=== PATIENT | male | born 1965 | race Caucasian/White ===

== ENCOUNTER 2019-09-14 14:04 | Emergency (ER) | payer OTHER, BC, SELFPAY ==
[2019-09-14] VITALS (13 sets, daily range): BP systolic 164–181; BP diastolic 97–122; PULSE 70–101; RESP 14–20; TEMP 36.8; O2SAT 95–98; BMI 29.0
--- NOTE | 2019-09-14 | DI.RAD.S_ITS ---
PROCEDURE: XR ANKLE LT 2V INDICATIONS: POST REDUCTION TECHNIQUE: 2 views of the ankle were acquired. COMPARISON: [facility], CR, XR ANKLE LT 2V, 09/14/2019, 15:41. FINDINGS: Bones: There has been interval reduction of the fracture dislocation at the mortise joint. Fracture fragments are in closer anatomic alignment. There is persistent widening of the tibiotalar joint and the obliquely oriented distal fibular fracture remains slightly displaced. Soft tissues: No tibiotalar joint effusion. Achilles tendon appears normal. IMPRESSION: Status post reduction of the fracture fragments at the fracture dislocation of the mortise joint with improved anatomic alignment. Approved by: Candace Hunter M.D. on 09/14/2019 at 18:59
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
--- NOTE | 2019-09-14 14:50 | DI.RAD.S_ITS ---
PROCEDURE: XR ANKLE LT 2V INDICATIONS: L ankle deformity TECHNIQUE: 2 views of the ankle were acquired. COMPARISON: [facility], CT, CT HEAD/BRAIN WO CON, 09/14/2019, 15:31. [facility], CT, CT THORACIC SPINE WO CON, 09/14/2019, 15:31. [facility], CT, CT CERVICAL SPINE WO CON, 09/14/2019, 15:31. FINDINGS: Bones: A prominent fracture dislocation can be seen, with a comminuted: Prominent displaced moderately angulated distal fibular fracture. The talus is prominently dislocated laterally. The talar dome demonstrates no florencio abnormality. Soft tissues: Soft tissue swelling is seen. IMPRESSION: Prominent fracture/dislocation, with the talus prominently dislocated laterally. If it would be helpful for clinical management decision making, please consider a dedicated ankle CT for further evaluation. Dictated by: Rodolfo Gold M.D. on 09/14/2019 at 15:31 Approved by: Rodolfo Gold M.D. on 09/14/2019 at 15:33
[2019-09-14] MEDS: HYDROMORPHONE 0.5 MG INJ IV ×2 (14:56→15:25)
--- NOTE | 2019-09-14 14:58 | ED.LOWEXIN ---
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 encounter for closed fracture Discharge Date/Time: 09/14/19 20:17 Instructions: DI for Ankle Fracture Activity Restrictions/Additional Instructions: Thank you for entrusting me with your care today. As discussed, you have fractured your ankle. Do not place any weight on your ankle, leave the splint in place. I prescribed you pain and nausea medication. You have been prescribed a narcotic medication, this medication can make you drowsy. Do not drive while using this medication or perform activities that require mental alertness. These medications can also make you constipated, please use [id number] docusate sodium as needed for constipation. Please follow-up with the orthopedic, Dr. Cortes, at [facility]. Please call their clinic tomorrow on Monday to schedule a follow-up appointment (phone: [phone]) in the next week. Return to the emergency department for any new or worsening symptoms such as severe pain, numbness or tingling, fevers, nausea, vomiting, or any other concerns. Prescriptions: New oxycodone-acetaminophen [Percocet] 5-325 mg tablet 1 tab PO Q4-6H PRN (Reason: pain) Qty: 14 RF: 0 ondansetron 4 mg tablet,disintegrating 4 mg PO Q6H PRN (Reason: nausea and vomiting) Qty: 14 RF: 0 No Action atenolol 25 MG tablet 25 mg PO QDAY Qty: 0 RF: 0 Stand Alone Forms: Work Release Note
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
[2019-09-14] MEDS: ONDANSETRON 4 MG/2 ML INJ IV (15:25)
[2019-09-14] MEDS: SODIUM CHLORIDE 0.9% 1,000 ML 1000 ML IV (15:25)
[2019-09-14 16:44] LABS: Add Manual Diff / Slide Review NO; Basophils Absolute Auto 100 /uL (0-100); Basophils Percent Auto 0.6 % (0-2); Eosinophils Absolute Auto 0 /uL (0-450); Hematocrit 48.7 % (41-53); Hemoglobin 16.6 g/dL (13.5-17.5); Lymphocytes Absolute Auto 2600 /uL (1100-4500); Lymphocytes Percent Auto 29.2 % (25-40); Mean Corpuscular Hemoglobin 30.5 PG (26-34); Mean Corpuscular Volume 89.7 fL (80-100); Monocytes Absolute Auto 800 /uL (0-900); Monocytes Percent Auto 9.1 % (3-14); Neutrophils Absolute Auto 5400 /uL (1500-7000); Neutrophils Percent Auto 61.1 % (50-75); Platelet Count 217 X10^3/uL (150-400); Red Blood Cell Count 5.42 X10^6/uL (4.5-5.9); Red Cell Distribution Width 13.5 % (11.6-14.8); White Blood Cell Count 8.8 X10^3/uL (4.5-11.0)
[2019-09-14 16:51] LABS: Alanine Aminotransferase 58 IU/L (<50); Albumin 4.6 g/dL (3.5-5.0); Albumin Globulin Ratio 1.6 (1.0-2.8); Alkaline Phosphatase 50 U/L (38-126); Aspartate Aminotransferase 46 IU/L (17-59); BUN Creatinine Ratio 13.3 (6-22); Bilirubin Total 0.8 mg/dL (0.2-1.3); Blood Urea Nitrogen 15 mg/dL (9-20); Calcium 9.5 mg/dL (8.4-10.2); Carbon Dioxide 23 mmol/L (22-32); Chloride 105 mmol/L (98-107); Estimated Glomerular Filt Rate > 60.0 mL/min (>60); Globulin 2.8 g/dL (1.7-4.1); Glucose 150 mg/dL (70-100); HEMOLYSIS 33 (0-50); Sodium 140 mmol/L (137-145); Total Protein 7.4 g/dL (6.3-8.2)
[2019-09-14] MEDS: HYDROMORPHONE 2 MG INJ 0.5 MG IV ×2 (17:04→17:59)
[2019-09-14] MEDS: TET,DIPH,PERTUSS(ACELL),VAC/PF 0.5 ML SYRINGE IM (17:59)
[2019-09-14] MEDS: propofoL 200 MG/20 ML VIAL 175 MG IV (18:20)
[2019-09-14] MEDS: HYDROMORPHONE 0.5 MG INJ 1 MG IV (18:35)
[2019-09-14] MEDS: OXYCODONE/APAP 5/325 PREPACK 1 BOTTLE MISC (19:51)
[2019-09-14] MEDS: ONDANSETRON 4 MG ODT PREPACK 1 BOTTLE MISC (19:51)
== END 2019-09-14 20:17 | disposition home or self-care (01) ==
PROVIDERS: Emergency Provider Nurse Practitioner
DX: S82.892A Other fracture of left lower leg, initial encounter for closed fracture (principal); S82.832A Other fracture of upper and lower end of left fibula, initial encounter for closed fracture; V23.4XXA Motorcycle driver injured in collision with car, pick-up truck or van in traffic accident, initial encounter; Z23 Encounter for immunization
CPT/HCPCS: 27752; 70450; 72125; 72128; 73600; 80053; 85025; 90471; 94770; 96361; 96374; 96375; 96376; 99152; 99153; 99285; 90715; J1170; J2405; J2704

== ENCOUNTER → 2019-09-17 07:29 | Outpatient (CLI) | payer BC, OTHER, SELFPAY ==
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
[2019-09-17 15:57] LABS: COVID19 -Nasal RAPID Negative (Negative)
== END ==
PROVIDERS: Physician Assistant; Referring Provider Orthopaedic Surgery Adult Reconstructive Orthopaedic Surgery; Visit Provider Orthopaedic Surgery Adult Reconstructive Orthopaedic Surgery
DX: Z11.59 Encounter for screening for other viral diseases (principal); S82.852A Displaced trimalleolar fracture of left lower leg, initial encounter for closed fracture; X58.XXXA Exposure to other specified factors, initial encounter
CPT/HCPCS: 73700; 87635

== ENCOUNTER 2019-09-18 14:30 | Day surgery (SDC) | payer OTHER, SELFPAY ==
[2019-09-17 11:58] VITALS: BMI 29.0
[2019-09-18] VITALS (11 sets, daily range): BP systolic 108–167; BP diastolic 37–108; PULSE 61–81; RESP 10–19; TEMP 37–37.4; O2SAT 93–99; BMI 29.2
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
[2019-09-18] MEDS: LACTATED RINGERS 1,000 ML 42 ML IV ×2 (15:00→18:43)
--- NOTE | 2019-09-18 15:11 | SUR.PREOP ---
drinks 2-3 alcoholic beverages/day
--- NOTE | 2019-09-18 15:58 | SUR.PREOP ---
continuous VS/heel brusher, O2 at 2LNP in prep for nerve block by Dr. Huitron.
--- NOTE | 2019-09-18 16:02 | PM.PREOP ---
Pre-operative Note COVID-19 COVID-19 status: Negative Result date/Date tested (Pos, Neg/Pending): 09/17/19 Interval Note History & Physical reviewed/Exam performed by Physician: Yes Changes to H&P: No H&P completed within 30 days and has changed as indicated here:: Plan for L ankle ORIF
--- NOTE | 2019-09-18 16:31 | SUR.PREOP ---
1426 Nerve block completed, pt awake, oriented, responded appropriately throughout procedure. Tolerated it well.
[2019-09-18] MEDS: CEFAZOLIN 2 GM/100 ML FROZ.PIGGY IV (16:39)
--- NOTE | 2019-09-18 16:57 | SUR.OPER ---
Supine on padded OR bed, head on pillow, arms secured on padded arm boards at <90 degrees abduction, right legs secured to bed with tape over blankets. Left lower leg on stack of blankets under control of surgeon. Safety belt at waist.
--- NOTE | 2019-09-18 17:04 | P.PCN_ITS ---
Procedures Date/Time Date of procedure: 09/18/19 Time of procedure: 16:00 General Procedure description: Ultrasound guided popliteal sciatic nerve block for post op pain control after left ankle ORIF by Dr. Cortes. Risk and benefits of proced ure discussed with patient. ASA monitoring applied to patient. Oxygen given via nasal cannula. 2 mg Versed and 100 mcg fentanyl given for procedural sedation. Skin site was prepped with chlorhexidine and allowed to fully dry. Sterile gloves, mask, hat and probe cover were used to maintain sterility. 2% lidocaine and 30ga needle was used to make a small skin wheal at needle insertion site. Under ultrasound guidance, a 21ga 100mm Pajunk needle was directed near the division of the sciatic nerve into tibial and peroneal nerve in the popliteal fossa (lateral approach). Patient reported no parasthesias. After negative aspiration, 20 mL 0.5% ropivacaine and 5mg dexamethasone were injected around s ciatic nerve. Patient tolerated procedure well. For adductor canal block, similar sterile prep was performed. Under US guidance, 100mm Pajunk needle was directed into the adductor canal at the level of mid thigh. After negative aspiration, 20 mL 0.5% ropivacaine and 5mg dexamethasone were injected. No parasthesias reported. Tolerate procedure well. Top Photo: Sciatic nerve, Bottom Photo: Adductor canal/saphenous nerve
--- NOTE | 2019-09-18 19:01 | PM.OP.1 ---
Operative Date/Time/Diagnoses Date of procedure: 09/18/19 Time of procedure: 19:01 Pre-op diagnosis: Left ankle trimalleolar equivalent fracture Post-op diagnosis: same Procedure & Clinicians Procedure: ORIF left ankle fracture Same procedure as scheduled: Yes Indications: trimalleolar ankle fracture equivalent Surgeon: Lionel Cortes Click Yes if Unassisted: Yes Anesthesia Type: General Operative Notes Findings: displaced fibular fracture, medial clear space widening, posterior malleolus fracture Closure Type: primary Prosthetic devices, grafts, tissues, transplants, or devices: Arthrex 12 hole 1/3 tubular plate 3x 2.7mm cortical lag screws by technique 3.5mm cortical 55mm syndesmosis screw Estimated Blood Loss (mL): 50 Blood products transfused: none Tourniquet time (min): 90 Procedure in detail: Patient was met in the preoperative holding area where the site and side of surgery were marked by MD. All last minute questions were answered. The consent was reviewed with the patient including the risks and benefits. Risks include infection, DVT, PE, malunion, nonunion, posttraumatic arthritis, need for future surgery, symptomatic hardware, etc. Patient demonstrates understanding of these risks and benefits and wishes to proceed with open reduction internal fixation of his left ankle fracture. Patient was then brought back in the operating room we placed on the operating room table and induced under general anesthesia. A nonsterile tourniquet was then placed on left thigh and left lower extremities then prepped and draped in normal sterile fashion. A surgical time-out was performed verifying the site and side of surgery as well as the name of the patient. A 10 cm long incision centered over the fibula was made through the skin with a with a 15. Blade. Combination sharp and blunt dissection was carried down to the lateral surface of the lateral malleolus. The fracture site was identified and cleaned using a combination of sharp dissection as well as curette and saline lavage. The fracture was booked ended open and some osteochondral fragments were removed from the syndesmosis at the level of the joint line. The fracture was reduced using [id number] clamps and 3x 2.7 mm cortical screws were placed in an A to P fashion by lag technique. This nicely restored our length. At this point a 12 hole 1/3 tubular plate was selected. This was provisionally held onto the the lateral surface of bone with BB tacks. X-rays were taken to verify plate positioning and plate was used as a neutralization plate. Five cortical screws were placed proximally followed by a cancellous screw in the 2nd to most distal hole in the lateral malleolus this was used to suck the plate down to bone. A locking screw was placed the most distal hole 1/3 tubular plate. A syndesmotic screw was then placed under fluoroscopic guidance. Films were taken to verify reduction. Stress views were also obtained which did not show medial clear space widening or significant talar tilt. The tourniquet was let down at 90 minutes. At this point the surgical site was thoroughly irrigated the deep fascial closure was performed with a number 0 Vicryl followed by 2 Vicryl in subcutaneous layer followed by 3 0 nylons in the vertical mattress fashion. Xeroform dressings were then placed followed by a short-leg splint. Complications: none Post-operative Condition: stable Disposition: PACU Plan for aftercare: ALICE JJ, return to clinic in 10-14 days for wound check and transition into CAM boot.
--- NOTE | 2019-09-18 19:09 | SUR.PHASEI ---
Sleeping, arouses easily to voice. Jaw thrust was done by anesthesia, aroused to voice. HOB elevated, able to maintain airway unassisted. Skin warm and dry.
--- NOTE | 2019-09-18 19:17 | SUR.PHASEI ---
[id number] Dr. Cortes spoke with patient, denies pain, no motion, + sensation
[2019-09-18] MEDS: OXYCODONE/ACETAMINOPHEN 5/325 TABLET 1 TAB PO (19:35)
--- NOTE | 2019-09-18 19:36 | SUR.PHASEII ---
denies pain but diastolic BP elevated above pre-op level. Gave pudding, ice chips, and PO rx to see if that helps. Dr. Huitron is returning to talk w/pt/spouse, will inform him and continue to monitor.
--- NOTE | 2019-09-18 19:39 | SUR.PHASEII ---
informed Dr. Huitron of diastolic BP 108-113, patient awake, talking. waiting for ride to arrive.
--- NOTE | 2019-09-18 19:44 | SUR.PHASEII ---
Dr. Huitron talking with the patient, suspects sleep apnea, talked to him about the risks and encouraged follow-up with primary care doctor.
--- NOTE | 2019-09-18 19:45 | SUR.PHASEII ---
Addendum entered by Arianna Singleton R.N. 09/18/19 19:50: No orders given, Dr explained to the patient that the BP could be related to sleep apnea. Pt states he was previously treated for hypertension. Pt to follow up with PCP Original Note: states he was previously on antihypertensives; discussing BP w/Dr. Huitron.
--- NOTE | 2019-09-18 19:58 | SUR.PHASEII ---
Dr Huitron wrote note for patient to take to primary dr, speaking with the patient again.
--- NOTE | 2019-09-18 20:17 | SUR.PHASEII ---
Dr. Huitron spoke with and daughter regarding MONICA concerns, note given. All questions answered.
== END 2019-09-18 20:17 | disposition home or self-care (01) ==
PROVIDERS: PCP Family Medicine; Referring Provider Orthopaedic Surgery Adult Reconstructive Orthopaedic Surgery; Visit Provider Orthopaedic Surgery Adult Reconstructive Orthopaedic Surgery
PROC: (CPT 27814; principal; 2019-09-18 17:30)
DX: S82.892A Other fracture of left lower leg, initial encounter for closed fracture (principal); V29.9XXA Motorcycle rider (driver) (passenger) injured in unspecified traffic accident, initial encounter
CPT/HCPCS: 27814; 64450; 73600; 76000; J0690; J1100; J2250; J2405; J2704; J3010